=== PATIENT | male | born 1955 | race Caucasian/White ===

== ENCOUNTER → 2021-02-18 15:48 | Outpatient (CLI) | payer OTHER, SELFPAY ==
--- NOTE | 2021-02-18 | DI.ECHO.S_ITS ---
[place] +---------+ [facility] +---------+ : : [address] : [address] : : : : [id number] : : : : Phone: [phone]+ Echocardiogram Report + + :Name: IVONE ALBRIGHT Study Date: 02/18/2021 Height: 75 in : :[facility] ReadingLocation: Weight: 280 lb : : Gender: Male BSA: 2.5 m2 : :: 1955 Age: 65 yrs BP: 149/84 mmHg: :Reason For Study: ENCOUNTER FOR GENERAL ADULT EXAMINATION : :Ordering Physician: YOSVANY, : :JO Performed By: Marlys Hidalgo : :Referring: JO BAR : + + Interpretation Summary The left ventricle is normal in size. The ejection fraction is estimated to be 55-60%. Significant LV dyssynchrony during PACs and PVCs. The right ventricle grossly appears normal in size with probable normal systolic function. All the valves were not well visualized however no gross abnormalities seen Procedure: A two-dimensional transthoracic echocardiogram with color flow and Doppler was performed. There is no prior echocardiogram noted for this patient. The study quality was technically difficult. The patient was in sinus bradycardia with heart rates between 47-64 bpm during the exam. The patient had occasional PVCs during the exam. The patient had occasional PACs during the exam. Left Ventricle: The left ventricle is normal in size. Proximal septal thickening is noted. There is no echo evidence for significant left ventricular outflow tract obstruction. There is no thrombus. The ejection fraction is estimated to be 55-60%. Significant LV dyssynchrony during PACs and PVCs. Diastolic parameters suggest a relaxation abnormality of the left ventricle, consistent with probable normal filling pressures. Right Ventricle: The right ventricle is not well visualized. The right ventricle grossly appears normal in size with probable normal systolic function. Atria: The left atrial size is normal. Right atrial size is normal. There is no Doppler evidence for an interatrial shunt. Mitral Valve: The mitral valve is grossly normal. There is trace mitral regurgitation. Aortic Valve: The aortic valve is mildly calcified. The aortic valve opens well. The aortic valve is not well visualized. There is no aortic valve stenosis. No aortic regurgitation is present. Tricuspid Valve: The tricuspid valve is not well visualized, but is grossly normal. There is trace tricuspid regurgitation. Pulmonary artery pressures cannot be estimated because of the lack of a measurable TR jet velocity. Pulmonic Valve: The pulmonic valve is not well visualized. There is no pulmonic valvular regurgitation. Great Vessels: The aortic root is normal size. The dimensions of the ascending aorta are normal. The inferior vena cava was not well visualized. Pericardium/ Pleura There is no pericardial effusion. There is no pleural effusion. MMode/2D Measurements & Calculations LVIDd: 4.5 cm LVOT diam: 2.1 cm LVIDs: 2.9 cm Ao root diam: 3.3 cm FS: 34.1 % asc Aorta Diam: 3.4 cm IVSd: 1.4 cm Ao Arch Diam (Prox Trans): 3.2 cm LVPWd: 1.1 cm LV manuel. diameter/BSA (cm/m^2): 1.8 LV sys. diameter/BSA (cm/m^2): 1.2 LA A2 area: 18.4 cm2 RA long axis: 4.7 cm LA A4 area: 19.5 cm2 RA area: 13.8 cm2 LA length (vol): 5.1 cm RA vol: 34.3 ml LA vol: 59.5 ml RA : 13.6 ml/m2 LA vol index: 23.5 ml/m2 RVD1 (basal): 3.9 cm TAPSE: 2.3 cm Doppler Measurements & Calculations Ao V2 max: 175.4 cm/sec LVOT Max Nolberto: 94.6 cm/sec Ao V2 mean: 122.3 cm/sec LV V1 max P.6 mmHg Ao max P.3 mmHg LV V1 VTI: 19.5 cm Ao mean P.6 mmHg MANUEL(I,D): 1.8 cm2 Ao V2 VTI: 37.7 cm MANUEL(V,D): 1.9 cm2 sev ratio: 0.52 MANUEL indexed to BSA (cm^2/m^2): 0.72 MV E max nolberto: 62.8 cm/sec PA V2 max: 76.8 cm/sec MV A max nolberto: 70.7 cm/sec PA V2 mean: 57.5 cm/sec MV E/A: 0.89 PA mean P.4 mmHg Med Peak E' Nolberto: 6.4 cm/sec PA pr(Accel): 34.5 mmHg E/E' med: 9.8 Lat Peak E' Nolberto: 6.3 cm/sec E/E' lat: 9.9 E/e' average: 9.9 MV dec time: 0.25 sec SV(LVOT): 68.7 ml Reading Physician:07:02 PM
== END ==
PROVIDERS: PCP Student in an Organized Health Care Education/Training Program; Referring Provider Orthopaedic Surgery; Visit Provider Physician Assistant
DX: Z00.00 Encounter for general adult medical examination without abnormal findings (principal)
CPT/HCPCS: 93306